=== PATIENT | female | born 1990 | race Caucasian/White ===

== ENCOUNTER 2017-10-26 10:30 | Emergency (ER) | payer BC ==
--- NOTE | 2017-10-26 11:22 | EDM.PDOC ---
ED HPI GENERAL MEDICAL PROBLEM - General Chief Complaint: Cardiovascular Problem Stated Complaint: RACING HEART Time Seen by Provider: 10/26/17 11:05 Source of Information: Reports: Patient History Limitations: Reports: No Limitations - History of Present Illness INITIAL COMMENTS - FREE TEXT/NARRATIVE: HISTORY AND PHYSICAL: History of present illness: [Comes to the emergency room complaining of her heart racing. Is completely resolved prior to arrival in the ER. She states the sensation of a fast heart rate started around 9:15 this morning after receiving allergy injections at her PCPs office. Lasted about 15 minutes and went away without any incident. When the sensation is occurring she's felt some numbness and tingling in her fingers bilaterally and around her mouth. When she feels her heart racing she feels what she describes as "a veil covering my eyes". She had an episode of this yesterday which lasted approximately 2 hours. She's had 2 other episodes in the past which occurred in the fall of 2016. She denies any shortness of breath or pain in her chest when this occurs. She has not checked her pulse rate when she gets the sensation of her heart racing. She does not have headache dizziness or blurred vision with her symptoms. It does not cause difficulty breathing. No fever or chills. No recent illness or infection. Denies sore throat runny nose and earaches. No cough or shortness of breath or pain in her chest. No difficulty breathing. No abdominal pain or change in appetite. No nausea vomiting constipation or diarrhea. Has noticed no swelling to her feet or lower legs. Mood has been normal. She has not taken any medications for her symptoms. Denies history of drug use. Admits to drinking 3 Red Bull per day, as well as taking pre-workout supplements without working out. 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 Past medical history: As per history of present illness and as reviewed below otherwise noncontributory. Surgical history: As per history of present illness and as reviewed below otherwise noncontributory. Social history: No reported history of drug or alcohol abuse. Family history: As per history of present illness and as reviewed below otherwise noncontributory. Physical exam: HEENT: Atraumatic, normocephalic. Oral mucous membranes are pink and moist. Neck supple, no lymphadenopathy or JVD. Lungs: Clear to auscultation, breath sounds equal bilaterally. Heart: S1S2, regular rate and rhythm. Rate 78. No murmurs. Abdomen: Bowel sounds are normoactive throughout. Soft, nondistended, nontender. Negative for masses, guarding or rebound. Negative for costovertebral tenderness. Pelvis: Stable nontender. Genitourinary: Deferred. Rectal: Deferred. Extremities: Atraumatic, negative for cords or calf pain. No swelling or cyanosis to feet or lower legs. Neurovascular unremarkable. Neuro: Awake, alert, oriented. Cranial nerves II through XII unremarkable. Cerebellum unremarkable. Motor and sensory unremarkable throughout. Exam nonfocal. Psych: Normal affect, interacts with examiner appropriately. Diagnostics: [CBC, CMP, UA, troponin, PT/INR, urine preg, EKG] Impression: [Palpitations] Plan: [EKG shows normal sinus rhythm. Lab results are within normal limits. Urine is negative. Reviewed with patient these findings. Discussed decreasing caffeine intake and increasing water intake. Follow-up with primary care. Strict return precautions are reviewed. She verbalizes understanding of today's discussion.] Definitive disposition and diagnosis as appropriate pending reevaluation and review of above. - Related Data Allergies Allergy/AdvReac Type Severity Reaction Status Date / Time cefixime [From Suprax] Allergy Rash Verified 10/26/17 10:39 clindamycin Allergy Hives Verified 10/26/17 10:39 Oatmeal Allergy Hives Uncoded 10/26/17 10:39 Home Meds: Home Meds Albuterol Sulfate [Albuterol Sulfate HFA] 8.5 gm IH ASDIRECTED PRN 04/04/15 [ History] Montelukast Sodium [Singulair] 10 mg PO DAILY 04/04/15 [History] PARoxetine [Paxil] 15 mg PO DAILY 04/04/15 [History] lamoTRIgine 25 mg PO DAILY 04/04/15 [History] Fluticasone Furoate [Arnuity Ellipta] 100 mcg IH DAILY 10/26/17 [History] Norethindrone AC-Eth Estradiol [Junel 1 mg-20 Mcg Tablet] 1 tab DAILY 10/26/17 [ History] Past Medical History Respiratory History: Reports: Asthma 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 Social & Family History - Family History Family Medical History: Noncontributory - Tobacco Use Smoking Status *Q: Current Every Day Smoker Years of Tobacco use: 15 Packs/Tins Daily: 1 - Caffeine Use Caffeine Use: Reports: Coffee, Energy Drinks - Recreational Drug Use Recreational Drug Use: No ED ROS GENERAL - Review of Systems Review Of Systems: ROS reveals no pertinent complaints other than HPI. ED EXAM, GENERAL - Physical Exam Exam: See Below Course - Vital Signs Last Recorded V/S: Last Vital Signs Temp 98.0 F 10/26/17 10:37 Pulse 68 10/26/17 13:00 Resp 16 10/26/17 13:00 BP 122/53 L 10/26/17 13:00 Pulse Ox 96 10/26/17 13:00 - Orders/Labs/Meds Orders: Active Orders 24 hr Category Date Time Status EKG 12 Lead [EKG Documentation Completion] [RC] STAT Care 10/26/17 10:47 Active HCG QUALITATIVE,URINE [URCHEM] Stat Lab 10/26/17 11:15 Ordered UA W/MICROSCOPIC [URIN] Stat Lab 10/26/17 11:15 Ordered Labs: Laboratory Tests 10/26/17 10/26/17 10/26/17 Range/Units 11:15 11:15 11:33 WBC 8.19 (4.0-11.0) K/uL RBC 4.78 (4.30-5.90) M/uL Hgb 14.5 (12.0-16.0) g/dL Hct 42.3 (36.0-46.0) % MCV 88.5 (80.0-98.0) fL MCH 30.3 (27.0-32.0) pg MCHC 34.3 (31.0-37.0) g/dL RDW Std Deviation 42.8 (28.0-62.0) fl RDW Coeff of Ines 13 (11.0-15.0) % Plt Count 295 (150-400) K/uL MPV 9.40 (7.40-12.00) fL Neut % (Auto) 60.8 (48.0-80.0) % Lymph % (Auto) 24.2 (16.0-40.0) % [place] % (Auto) 7.9 (0.0-15.0) % Eos % (Auto) 6.2 (0.0-7.0) % Baso % (Auto) 0.9 (0.0-1.5) % Neut # (Auto) 5.0 (1.4-5.7) K/uL Lymph # (Auto) 2.0 (0.6-2.4) K/uL [place] # (Auto) 0.7 (0.0-0.8) K/uL Eos # (Auto) 0.5 (0.0-0.7) K/uL Baso # (Auto) 0.1 (0.0-0.1) K/uL Nucleated RBC % 0.0 /100WBC Nucleated RBCs # 0 K/uL INR Sodium (136-145) mmol/L Potassium (3.5-5.1) mmol/L Chloride (98-107) mmol/L Carbon Dioxide (21.0-32.0) mmol/L BUN (7.0-18.0) mg/dL Creatinine (0.6-1.0) mg/dL Est Cr Clr Drug Dosing mL/min Estimated GFR (MDRD) ml/min Glucose (74-106) mg/dL Calcium (8.5-10.1) mg/dL Total Bilirubin (0.2-1.0) mg/dL AST (15-37) IU/L ALT (14-63) IU/L Alkaline Phosphatase (46-116) U/L Troponin I (0.000-0.056) ng/mL Total Protein (6.4-8.2) g/dL Albumin (3.4-5.0) g/dL Globulin (2.0-3.5) g/dL Albumin/Globulin Ratio (1.3-2.8) Urine Color YELLOW Urine Appearance CLEAR Urine pH 6.0 (5.0-8.0) Ur Specific Labolt 1.025 (1.001-1.035) Urine Protein NEGATIVE (NEGATIVE) mg/dL Urine Glucose (UA) NEGATIVE (NEGATIVE) mg/dL Urine Ketones NEGATIVE (NEGATIVE) mg/dL Urine Occult Blood TRACE-INTACT (NEGATIVE) Urine Nitrite NEGATIVE (NEGATIVE) Urine Bilirubin NEGATIVE (NEGATIVE) Urine Urobilinogen 0.2 (<2.0) EU/dL Ur Leukocyte Esterase NEGATIVE (NEGATIVE) Urine RBC 0-1 (0-2/HPF) Urine WBC 1-2 (0-5/HPF) Ur Epithelial Cells MODERATE (NONE-FEW) Urine Bacteria RARE (NEGATIVE) Urine HCG, Qual NEGATIVE (NEGATIVE) 10/26/17 10/26/17 Range/Units 11:33 11:33 WBC (4.0-11.0) K/uL RBC (4.30-5.90) M/uL Hgb (12.0-16.0) g/dL Hct (36.0-46.0) % MCV (80.0-98.0) fL MCH (27.0-32.0) pg MCHC (31.0-37.0) g/dL RDW Std Deviation (28.0-62.0) fl RDW Coeff of Ines (11.0-15.0) % Plt Count (150-400) K/uL MPV (7.40-12.00) fL Neut % (Auto) (48.0-80.0) % Lymph % (Auto) (16.0-40.0) % [place] % (Auto) (0.0-15.0) % Eos % (Auto) (0.0-7.0) % Baso % (Auto) (0.0-1.5) % Neut # (Auto) (1.4-5.7) K/uL Lymph # (Auto) (0.6-2.4) K/uL [place] # (Auto) (0.0-0.8) K/uL Eos # (Auto) (0.0-0.7) K/uL Baso # (Auto) (0.0-0.1) K/uL Nucleated RBC % /100WBC Nucleated RBCs # K/uL INR 1.02 Sodium 136 (136-145) mmol/L Potassium 4.1 (3.5-5.1) mmol/L Chloride 103 (98-107) mmol/L Carbon Dioxide 27.0 (21.0-32.0) mmol/L BUN 20 H (7.0-18.0) mg/dL Creatinine 0.8 (0.6-1.0) mg/dL Est Cr Clr Drug Dosing 101.81 mL/min Estimated GFR (MDRD) > 60.0 ml/min Glucose 86 (74-106) mg/dL Calcium 9.3 (8.5-10.1) mg/dL Total Bilirubin 0.3 (0.2-1.0) mg/dL AST 16 (15-37) IU/L ALT 21 (14-63) IU/L Alkaline Phosphatase 56 (46-116) U/L Troponin I < 0.050 (0.000-0.056) ng/mL Total Protein 7.5 (6.4-8.2) g/dL Albumin 3.9 (3.4-5.0) g/dL Globulin 3.6 H (2.0-3.5) g/dL Albumin/Globulin Ratio 1.1 L (1.3-2.8) Urine Color Urine Appearance Urine pH (5.0-8.0) Ur Specific Labolt (1.001-1.035) Urine Protein (NEGATIVE) mg/dL Urine Glucose (UA) (NEGATIVE) mg/dL Urine Ketones (NEGATIVE) mg/dL Urine Occult Blood (NEGATIVE) Urine Nitrite (NEGATIVE) Urine Bilirubin (NEGATIVE) Urine Urobilinogen (<2.0) EU/dL Ur Leukocyte Esterase (NEGATIVE) Urine RBC (0-2/HPF) Urine WBC (0-5/HPF) Ur Epithelial Cells (NONE-FEW) Urine Bacteria (NEGATIVE) Urine HCG, Qual (NEGATIVE) Departure - Departure Time of Disposition: 12:45 Disposition: Home, Self-Care 01 Condition: Good Clinical Impression: Palpitations Instructions: Palpitations, [id number] Referrals: Paulina Razo NP [Primary Care Provider] - Forms: ED Department Discharge Additional Instructions: The following information is given to patients seen in the emergency department who are being discharged to home. This information is to outline your options for follow-up care. We provide all patients seen in our emergency department with a follow-up referral. The need for follow-up, as well as the timing and circumstances, are variable depending upon the specifics of your emergency department visit. If you don't have a primary care physician on staff, we will provide you with a referral. We always advise you to contact your personal physician following an emergency department visit to inform them of the circumstance of the visit and for follow-up with them and/or the need for any referrals to a consulting specialist. The emergency department will also refer you to a specialist when appropriate. This referral assures that you have the opportunity for follow-up care with a specialist. All of these measure are taken in an effort to provide you with optimal care, which includes your follow-up. Under all circumstances we always encourage you to contact your private physician who remains a resource for coordinating your care. When calling for follow-up care, please make the office aware that this follow-up is from your recent emergency room visit. If for any reason you are refused follow-up, please contact the [facility] emergency department at and asked to speak to the emergency department charge nurse. [facility] [address] [place] [id number] Follow-up up with your local primary care provider or at the clinic listed above in 48-72 hours. Increase water, decrease caffeine. Return to ER as needed as discussed. - My Orders Last 24 Hours: My Active Orders 10/26/17 10:47 EKG 12 Lead [EKG Documentation Completion] [RC] STAT 10/26/17 11:15 HCG QUALITATIVE,URINE [URCHEM] Stat UA W/MICROSCOPIC [URIN] Stat - Assessment/Plan Last 24 Hours: My Active Orders 10/26/17 10:47 EKG 12 Lead [EKG Documentation Completion] [RC] STAT 10/26/17 11:15 HCG QUALITATIVE,URINE [URCHEM] Stat UA W/MICROSCOPIC [URIN] Stat
[2017-10-26 12:13] LABS: CHLORIDE,CL 103 mmol/L (98-107)
[2017-10-26 12:25] LABS: SODIUM,NA 136 mmol/L (136-145)
[2017-10-26 13:01] VITALS: BP 122/53
== END 2017-10-26 12:53 | disposition home or self-care (01) ==
LOC: MW.ED 10:30
DX: R00.2 Palpitations (principal); J45.909 Unspecified asthma, uncomplicated; F17.210 Nicotine dependence, cigarettes, uncomplicated; F41.9 Anxiety disorder, unspecified; F32.9 Major depressive disorder, single episode, unspecified; Z79.899 Other long term (current) drug therapy; Z88.1 Allergy status to other antibiotic agents; Z91.018 Allergy to other foods
CPT/HCPCS: 36415; 80053; 81001; 81025; 84484; 85025; 85610; 93005; 99283; 99285-25

== ENCOUNTER 2019-02-15 11:09 | Emergency (ER) | payer BC, OTHER ==
[2019-02-15 11:27] VITALS: BP 127/70
--- NOTE | 2019-02-15 11:32 | EDM.PDOC ---
ED HPI GENERAL MEDICAL PROBLEM - General Chief Complaint: Eye Problems Stated Complaint: EYES RED/SWOLLEN, HANDS- RASH Time Seen by Provider: 02/15/19 11:29 Source of Information: Reports: Patient History Limitations: Reports: No Limitations - History of Present Illness INITIAL COMMENTS - FREE TEXT/NARRATIVE: HISTORY AND PHYSICAL: History of present illness: Patient is a 29-year-old female who presents to the emergency room with complaints of bilateral sinus discomfort and eye drainage and irritation. Reports she does have significant allergies and does take Zyrtec and Singulair daily to help control her symptoms. Yesterday she was doing gardening and mowed the lawn, symptoms started shortly thereafter. Review of systems: As per history of present illness and below otherwise all systems reviewed and negative. Past medical history: As per history of present illness and as reviewed below otherwise noncontributory. Surgical history: As per history of present illness and as reviewed below otherwise noncontributory. Social history: See social history for further information Family history: As per history of present illness and as reviewed below otherwise noncontributory. Physical exam: General: Well-developed and well-nourished 29-year-old female. Alert and oriented. Nontoxic appearing and in no acute distress. HEENT: Atraumatic, normocephalic, pupils equal and reactive bilaterally, negative for conjunctival pallor or scleral icterus, mucous membranes moist, TMs normal bilaterally, throat clear, neck supple, nontender, trachea midline. Bilateral maxillary sinus tenderness with palpation. No drooling or trismus noted. No meningeal signs. No hot potato voice noted. Lungs: Clear to auscultation, breath sounds equal bilaterally, chest nontender. Heart: S1S2, regular rate and rhythm without overt murmur Abdomen: Soft, nondistended, nontender. Skin: Does have noted eczema to bilateral wrists and the nape of her neck ( chronic), does not appear inflammed or infected. Redness and soft tissue swelling noted to bilateral cheeks with dry skin. Otherwise skin is intact, warm , dry. No lesions or rashes noted. Extremities: Atraumatic, moves all extremities per self without difficulty or deficits, negative for cords or calf pain. Neurovascular unremarkable. Neuro: Awake, alert, oriented. Cranial nerves II through XII unremarkable. Cerebellum unremarkable. Motor and sensory unremarkable throughout. Exam nonfocal. Notes: We discussed treatment modalities. We'll treat her for sinusitis. I drainage and irritation is likely allergic in nature. Encouraged her to follow up with her primary care provider for reevaluation and further management. Supportive care measures were reviewed and discussed. Voices understanding and is agreeable to plan of care. Denies any further questions or concerns at this time. Diagnostics: None Therapeutics: None Prescription: Augmentin Medrol Dosepak Impression: Allergic conjunctivitis Sinusitis Plan: 1. Continue taking here see her tach and Singulair as you have been. Use Benadryl as needed. Take prescriptions as directed. 2. Follow-up with your primary care provider as we discussed. Return to the ED as needed and as discussed. Definitive disposition and diagnosis as appropriate pending reevaluation and review of above. - Related Data Allergies Allergy/AdvReac Type Severity Reaction Status Date / Time cefixime [From Suprax] Allergy Rash Verified 02/15/19 11:24 clindamycin Allergy Hives Verified 02/15/19 11:24 Oatmeal Allergy Hives Uncoded 02/15/19 11:24 Home Meds: Home Meds Albuterol Sulfate [Albuterol Sulfate HFA] 1 - 2 puff IH ASDIRECTED PRN 04/04/15 [History] Montelukast Sodium [Singulair] 10 mg PO DAILY 04/04/15 [History] PARoxetine [Paxil] 20 mg PO BID 04/04/15 [History] lamoTRIgine 100 mg PO DAILY 04/04/15 [History] Fluticasone Furoate [Arnuity Ellipta] 1 dose IH DAILY 10/26/17 [History] Norethindrone AC-Eth Estradiol [Junel 1 mg-20 Mcg Tablet] 1 tab DAILY 10/26/17 [ History] Past Medical History Respiratory History: Reports: Asthma 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 Social & Family History - Family History Family Medical History: Noncontributory - Tobacco Use Smoking Status *Q: Light Tobacco Smoker Years of Tobacco use: 10 Packs/Tins Daily: 0.1 - Caffeine Use Caffeine Use: Reports: Coffee, Energy Drinks - Recreational Drug Use Recreational Drug Use: No ED ROS GENERAL - Review of Systems Review Of Systems: ROS reveals no pertinent complaints other than HPI. ED EXAM GENERAL W FULL EYE - Physical Exam Exam: See Below (See dictation) Course - Vital Signs Last Recorded V/S: Last Vital Signs Temp 96.9 F 02/15/19 11:24 Pulse 81 02/15/19 11:24 Resp 15 02/15/19 11:24 BP 127/70 02/15/19 11:24 Pulse Ox 99 02/15/19 11:24 Departure - Departure Time of Disposition: 11:31 Disposition: Home, Self-Care 01 Clinical Impression: Conjunctivitis Qualifiers: Conjunctivitis type: other Laterality: bilateral Qualified Code(s): H10.89 - Other conjunctivitis Sinusitis Qualifiers: Sinusitis location: frontal Chronicity: acute Recurrence: non-recurrent Qualified Code(s): J01.10 - Acute frontal sinusitis, unspecified - Discharge Information Instructions: Allergic Conjunctivitis, Adult, [id number], Sinusitis, Adult, [id number] Referrals: Paulina Razo NP [Primary Care Provider] - Forms: ED Department Discharge Additional Instructions: The following information is given to patients seen in the emergency department who are being discharged to home. This information is to outline your options for follow-up care. We provide all patients seen in our emergency department with a follow-up referral. The need for follow-up, as well as the timing and circumstances, are variable depending upon the specifics of your emergency department visit. If you don't have a primary care physician on staff, we will provide you with a referral. We always advise you to contact your personal physician following an emergency department visit to inform them of the circumstance of the visit and for follow-up with them and/or the need for any referrals to a consulting specialist. The emergency department will also refer you to a specialist when appropriate. This referral assures that you have the opportunity for follow-up care with a specialist. All of these measure are taken in an effort to provide you with optimal care, which includes your follow-up. Under all circumstances we always encourage you to contact your private physician who remains a resource for coordinating your care. When calling for follow-up care, please make the office aware that this follow-up is from your recent emergency room visit. If for any reason you are refused follow-up, please contact the [facility] Emergency Department at and asked to speak to the emergency department charge nurse. [facility] [address] [place] [id number] [facility] [address] [place] [id number] 1. Continue taking your Zytrec and Singulair as you have been. Use Benadryl as needed. Take prescriptions as directed. 2. Follow-up with your primary care provider as we discussed. Return to the ED as needed and as discussed.
== END 2019-02-15 11:40 | disposition home or self-care (01) ==
LOC: MW.ED 11:09
DX: H10.13 Acute atopic conjunctivitis, bilateral (principal); J01.10 Acute frontal sinusitis, unspecified; J45.909 Unspecified asthma, uncomplicated; F41.9 Anxiety disorder, unspecified; F32.9 Major depressive disorder, single episode, unspecified; F17.210 Nicotine dependence, cigarettes, uncomplicated; Z88.1 Allergy status to other antibiotic agents; Z91.018 Allergy to other foods; Z79.899 Other long term (current) drug therapy
CPT/HCPCS: 99282

== ENCOUNTER 2020-06-15 16:30 | Emergency (ER) | payer BC ==
[2020-06-15 17:25] LABS: BLOOD UREA NITROGEN,BUN 14 mg/dL (7.0-18.0); CARBON DIOXIDE,CO2 24.4 mmol/L (21.0-32.0); CHLORIDE,CL 104 mmol/L (98-107); GLUCOSE RANDOM 91 mg/dL (74-106); POTASSIUM,K 3.7 mmol/L (3.5-5.1); SODIUM,NA 138 mmol/L (136-145)
--- NOTE | 2020-06-15 17:48 | CR ---
INDICATION: Chest pain after EGD. Evaluate for free air COMPARISON: None available. FINDINGS: PA and lateral views of the chest were obtained. The lungs are clear. No focal or diffuse infiltrates are present. The heart is normal in size. The mediastinum is normal in appearance. There is no sign of any pneumomediastinum. There is no sign of any free air in the abdomen. The osseous structures are normal in appearance for the patient`s age. IMPRESSION: Normal chest 2 views. No sign of any pneumomediastinum or free intra-abdominal air. Dictated by Terrence Jacques MD @ Jun 15 2020 5:38PM Signed by Dr. Terrence Jacques @ Jun 15 2020 5:45PM
--- NOTE | 2020-06-15 17:58 | EDM.PDOC ---
ED HPI GENERAL MEDICAL PROBLEM - General Chief Complaint: Chest Pain Stated Complaint: CHEST PAINS Time Seen by Provider: 06/15/20 16:40 - History of Present Illness INITIAL COMMENTS - FREE TEXT/NARRATIVE: CHIEF COMPLAINT(S): Chest pain HISTORY OF PRESENT ILLNESS: This is a 30-year-old woman with a recent diagnosis of ulcerative colitis yesterday status post EGD and colonoscopy who comes to the emergency department with a chief complaint of chest pain. The patient states that approximately 3 to 4 hours prior to arrival she started to experience chest pain located in the center of her chest and just to the left. She describes the pain as sharp without any radiation. She states that the pain is constant and rated currently at 1 out of 10. She states that at its maximal onset it was 2 out of 10. She denies any associated symptoms such as shortness of breath, vomiting, nausea, hematemesis, or diaphoresis. She states that it has slowly improved on its own but there are no relieving symptoms. She states that she has not had any fevers or anything but states that she was told by the GI doctor yesterday to come to the emergency department if she developed chest pain. She denies any other symptoms REVIEW OF SYSTEMS: Constitutional: Denies fever, chills. Eyes: Denies eye pain Ears, Nose, Mouth, & Throat: Denies earache Cardiovascular: Positive for chest pain Respiratory: Denies shortness of breath Gastrointestinal: Denies abdominal pain, nausea, vomiting, diarrhea, hematochezia. Genitourinary: Denies hematuria Skin:Denies a rash Neurological: Denies blurred vision Psychiatric: Denies depression PAST MEDICAL HISTORY: As per history of present illness and as reviewed below otherwise noncontributory. SURGICAL HISTORY: As per history of present illness and as reviewed below otherwise noncontributory. SOCIAL HISTORY: As per history of present illness and as reviewed below otherwise noncontributory. FAMILY HISTORY: As per history of present illness and as reviewed below otherwise noncontributory. EXAMINATION OF ORGAN SYSTEMS/BODY AREAS: Constitutional: Blood pressure is 128/60, heart rate 86, respiratory rate 18 with an oxygen saturation 98% on room air. Temperature 36 point General: Overall well-appearing woman who is in no acute distress Psychiatric: Appropriate mood and affect. Eyes: No scleral icterus or conjunctival erythema ENMT: Moist mucous membranes. No pharyngeal erythema Cardiovascular: Regular, rate, and rythym. No gallops, murmurs, or rubs. Bilateral upper extremity pulses symmetric and intact. No peripheral edema. No JVD. No crepitus felt in the neck or anterior chest wall. Respiratory: Lungs clear to auscultation bilaterally. No wheezes, rales, or rhonchi. Gastrointestinal: Soft, non-tender, non-distended. Normoactive bowel sounds Genitourinary: No suprapubic tenderness Musculoskeletal: Normal range of motion. Skin: No lesions or abrasions. Neurological: Alert, GCS 15 MEDICAL DECISION MAKING AND COURSE IN THE ED WITH INTERPRETATION/REVIEW OF DIAGNOSTIC STUDIES: This is a 30-year-old woman with a past medical history of ulcerative colitis, asthma, depression, anxiety who comes to the emergency department with central chest pain after having an EGD done yesterday who has stable vital signs and appears well. EKG was obtained which did not reveal any acute signs of ischemia. Will get labs including CBC, BMP, troponin, and magnesium. Will obtain a chest x-ray to evaluate for mediastinal air. At this time the patient did not want any pain medication as it is improving. We will reevaluate the patient for symptomatic improvement. Laboratory: CBC reveals a leukocytosis of 13.30 with neutrophilic predominance and thrombocytosis with a plate count of 403. BMP is unremarkable. Troponin x1 is negative. Magnesium is decreased at 1.7. The radiological images were viewed by myself along with reading the report from the radiologist. Chest x-ray does not reveal any acute cardiopulmonary process or evidence of mediastinal air. Twelve-lead EKG interpreted by myself. Normal sinus rhythm at a rate of 90beats per minute. Normal axis. MD interval is 115ms. QRS duration is 84ms. ST segments are normal without elevations or depressions. No Q waves present. Hypertrophy not noted. No changes demonstrated from prior EKG dated November 05, 2017. Interpretation: Normal sinus rhythm On reevaluation, the patient stated that she had the pain still. She still rates it as 1 out of 10. I discussed with her at this time obtaining a CT to evaluate for air. She was amenable to this plan. Therefore we will obtain a CT thorax without contrast. The radiological images were viewed by myself along with reading the report from the radiologist. CT thorax does not reveal any pneumomediastinum or abnormality. After imaging the patient stated that her pain continued to improve. At this time I do not believe any further imaging is indicated. I did discuss with her at this time that if she were to have worsening chest pain she need to return to the emergency department for further imaging including a contrast esophagram. She did express understanding. She was amenable discharge at this time and had no further questions. DISPOSITION: The patient was discharged home in stable condition. The patient will follow up with GI specialist at her scheduled appointment CONDITION: Fair PROCEDURES: None FINAL IMPRESSION(S)/DIAGNOSES: One. Acute atypical chest pain Durga Trujillo M.D. chest Pain Score (Numeric/FACES): 2 - Related Data Allergies Allergy/AdvReac Type Severity Reaction Status Date / Time cefixime [From Suprax] Allergy Rash Verified 06/15/20 16:53 clindamycin Allergy Hives Verified 06/15/20 16:53 Oatmeal Allergy Hives Uncoded 06/15/20 16:53 Home Meds: Home Meds Albuterol Sulfate [Albuterol Sulfate HFA] 1 - 2 puff IH ASDIRECTED PRN 04/04/15 [History] Montelukast Sodium [Singulair] 10 mg PO DAILY 04/04/15 [History] PARoxetine [Paxil] 20 mg PO BID 04/04/15 [History] lamoTRIgine 100 mg PO DAILY 04/04/15 [History] Fluticasone Furoate [Arnuity Ellipta] 1 dose IH DAILY 10/26/17 [History] norethindrone ac-eth estradioL [Junel 1 mg-20 Mcg Tablet] 1 tab DAILY 10/26/17 [History] Dupilumab [Dupixent Syringe] mg IM ASDIRECTED 06/15/20 [History] LORazepam [Ativan] mg PO ASDIRECTED PRN 06/15/20 [History] Past Medical History Respiratory History: Reports: Asthma 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 Social & Family History - Family History Family Medical History: No Pertinent Family History - Tobacco Use Tobacco Use Status *Q: Never Tobacco User - Caffeine Use Caffeine Use: Reports: Coffee, Energy Drinks - Recreational Drug Use Recreational Drug Use: No ED ROS GENERAL - Review of Systems Review Of Systems: See Below ED EXAM, GENERAL - Physical Exam Exam: See Below Course - Vital Signs Last Recorded V/S: Last Vital Signs Temp 36.6 C 06/15/20 16:45 Pulse 72 06/15/20 18:47 Resp 18 06/15/20 18:47 BP 114/69 06/15/20 18:47 Pulse Ox 97 06/15/20 18:47 - Orders/Labs/Meds Labs: Laboratory Tests 06/15/20 06/15/20 Range/Units 16:45 16:45 WBC 13.30 H (4.0-11.0) K/uL RBC 4.05 L (4.30-5.90) M/uL Hgb 11.9 L (12.0-16.0) g/dL Hct 36.2 (36.0-46.0) % MCV 89.4 (80.0-98.0) fL MCH 29.4 (27.0-32.0) pg MCHC 32.9 (31.0-37.0) g/dL RDW Std Deviation 41.0 (28.0-62.0) fl RDW Coeff of Ines 13 (11.0-15.0) % Plt Count 403 H (150-400) K/uL MPV 9.80 (7.40-12.00) fL Neut % (Auto) 70.3 (48.0-80.0) % Lymph % (Auto) 20.8 (16.0-40.0) % [place] % (Auto) 4.3 (0.0-15.0) % Eos % (Auto) 4.3 (0.0-7.0) % Baso % (Auto) 0.3 (0.0-1.5) % Neut # (Auto) 9.4 H (1.4-5.7) K/uL Lymph # (Auto) 2.8 H (0.6-2.4) K/uL [place] # (Auto) 0.6 (0.0-0.8) K/uL Eos # (Auto) 0.6 (0.0-0.7) K/uL Baso # (Auto) 0.0 (0.0-0.1) K/uL Nucleated RBC % 0.0 /100WBC Nucleated RBCs # 0 K/uL Sodium 138 (136-145) mmol/L Potassium 3.7 (3.5-5.1) mmol/L Chloride 104 (98-107) mmol/L Carbon Dioxide 24.4 (21.0-32.0) mmol/L BUN 14 (7.0-18.0) mg/dL Creatinine 0.8 (0.6-1.0) mg/dL Est Cr Clr Drug Dosing 99.08 mL/min Estimated GFR (MDRD) > 60.0 ml/min Glucose 91 (74-106) mg/dL Calcium 8.6 (8.5-10.1) mg/dL Magnesium 1.7 L (1.8-2.4) mg/dL Troponin I < 0.050 (0.000-0.056) ng/mL Departure - Departure Time of Disposition: 18:59 Disposition: Home, Self-Care 01 Condition: Fair Clinical Impression: Atypical chest pain - Discharge Information *PRESCRIPTION DRUG MONITORING PROGRAM REVIEWED*: No *COPY OF PRESCRIPTION DRUG MONITORING REPORT IN PATIENT DEJA: No Instructions: Nonspecific Chest Pain, Adult, [id number] Referrals: Elaine Cardoza DO [Primary Care Provider] - Forms: ED Department Discharge Additional Instructions: The patient is informed of any results of their evaluation and diagnostic workup and all questions are answered. They are given discharge instructions and return precautions. The patient is stable for discharge. The patient states they understand and agree with the plan and that they will return if their symptoms get worse or if they have any new concerns. The following information is given to patients seen in the emergency department who are being discharged to home. This information is to outline your options for follow-up care. We provide all patients seen in our emergency department with a follow-up referral. The need for follow-up, as well as the timing and circumstances, are variable depending upon the specifics of your emergency department visit. If you don't have a primary care physician on staff, we will provide you with a referral. We always advise you to contact your personal physician following an emergency department visit to inform them of the circumstance of the visit and for follow-up with them and/or the need for any referrals to a consulting specialist. The emergency department will also refer you to a specialist when appropriate. This referral assures that you have the opportunity for follow-up care with a specialist. All of these measure are taken in an effort to provide you with optimal care, which includes your follow-up. Under all circumstances we always encourage you to contact your private physician who remains a resource for coordinating your care. When calling for follow-up care, please make the office aware that this follow-up is from your recent emergency room visit. If for any reason you are refused follow-up, please contact the [facility] Emergency Department at and asked to speak to the emergency department charge nurse. Today your evaluated in an emergency basis. It is reassuring that your chest pain is improving. At this time her work-up is negative. If you are to have worsening chest pain I would return to the emergency department for further imaging. Please follow-up with your GI specialist at your scheduled appointment. [facility] [address] [place] [id number] [place] [address] Sepsis Event Note (ED) - Evaluation Sepsis Screening Result: No Definite Risk - Focused Exam Vital Signs: Vital Signs Temp Pulse Resp BP Pulse Ox 06/15/20 18:47 72 18 114/69 97 06/15/20 17:59 71 18 128/60 96 06/15/20 16:45 36.6 C 86 18 128/60 98
[2020-06-15 18:48] VITALS: BP 114/69; PULSE 72
--- NOTE | 2020-06-15 18:53 | CT ---
INDICATION: Chest pain following endoscopy TECHNIQUE: CT chest without i.v. contrast. Coronal and sagittal reformats were obtained. COMPARISON: None FINDINGS: Cardiovascular: The heart has an unremarkable appearance and size. The pulmonary arteries are unremarkable in appearance. No sign of aneurysm seen in the thoracic aorta. The presence of aortic dissection cannot be evaluated without the use of intravenous contrast. Mediastinum: No pneumomediastinum is identified. Trace residual thymic tissue is noted in the anterior mediastinum. Lung: Both lungs are unremarkable in appearance. Pleura and pericardium: No sign of pleural effusion seen. No significant pericardial effusion is present. Chest wall and axilla: No mass or adenopathy seen. Bone: Unremarkable for age. Upper abdomen: Unremarkable. IMPRESSION: 1. Unremarkable CT appearance of the chest. If there is a high clinical index of suspicion for soft tissue injury, assessment with contrast esophagram is recommended. Dictated by Arnulfo Rodriguez MD @ 06/15/2020 6:50:46 PM Please note that all CT scans at this facility use dose modulation, iterative reconstruction, and/or weight-based dosing when appropriate to reduce radiation dose to as low as reasonably achievable. Dictated by: Arnulfo Rodriguez MD @ 06/15/2020 18:51:31 (Electronically Signed)
== END 2020-06-15 19:09 | disposition home or self-care (01) ==
LOC: MW.ED 16:30
DX: R07.89 Other chest pain (principal); J45.909 Unspecified asthma, uncomplicated; F41.9 Anxiety disorder, unspecified; F32.9 Major depressive disorder, single episode, unspecified; Z79.899 Other long term (current) drug therapy; Z88.1 Allergy status to other antibiotic agents; Z91.018 Allergy to other foods
CPT/HCPCS: 36415; 71046; 71046-26; 71250; 71250-26; 80048; 83735; 83880; 84484; 85025; 93005; 93010; 99282; 99285-25

== ENCOUNTER 2020-12-24 01:21 | Emergency (ER) | payer BC ==
[2020-12-24] MEDS ORDERED: Lidocaine 1% 10 ML MDV INJECT ONE (01:24)
[2020-12-24] MEDS ORDERED: Sodium Chloride 0.9% 2.5 ML Syringe FLUSH PRN (01:24)
[2020-12-24] MEDS ORDERED: Sodium Chloride 0.9% 10 ML Syringe FLUSH PRN (01:24)
--- NOTE | 2020-12-24 01:42 | EDM.PDOC ---
ED HPI GENERAL MEDICAL PROBLEM - General Chief Complaint: Behavioral/Psych Stated Complaint: CUT ON RIGHT WRIST Time Seen by Provider: 12/24/20 01:27 - History of Present Illness INITIAL COMMENTS - FREE TEXT/NARRATIVE: History of present illness: [] This patient presents with a laceration of the right wrist. She is tearful crying and says she is ashamed and upset. She is afraid to . She says she cut her own wrist and cut her own left arm. She did this in response to being overwhelmed with depression and anxiety which is built over the last 3 weeks. The patient had a couple of drinks with a friend and then after starting to drink she drank some more and lost her intubation to hurt her self. She has not tried to hurt her self since she took an overdose of pills when she was 13 years old. The patient is chronically dealt with depression and anxiety but 3 weeks ago she lost a relationship but also was a source of financial security and now her job is quite stressful and she cannot afford to do the things she likes to and is used to doing. Review of systems: As per history of present illness and below otherwise all systems reviewed and negative. Past medical history: As per history of present illness and as reviewed below otherwise noncontributory. Surgical history: As per history of present illness and as reviewed below otherwise noncontributory. Social history: No reported history of drug or alcohol abuse. Family history: As per history of present illness and as reviewed below otherwise noncontributory. Physical exam: Constitutional - well developed, well-nourished and in no acute distress HEENT - normocephalic, no evidence of trauma - external nose and mouth normal - no mass in neck and no JVD - mucosae moist EYES - full EOM, PERRL, no icterus - no evidence of inflammation, injection, or drainage Respiratory - no respiratory distress, equal bilateral expansion, lungs clear to auscultation and no abnormal lung sounds Cardiovascular - Regular Rhythm with S1 and S2 appreciated and no murmur, gallop or rub. John's test reveals she has good revascularization after compression of the right hand from both the ulnar and radial artery. GI - abdomen soft without distension or organomegaly - normal bowel sounds - no guard or rebound Musculoskeletal no gross deformity of long bones or joints - no tenderness, swelling or edema Neurologic - Alert and oriented times four - CN II-XII grossly intact - motor sensory and coordination symmetrically normal -median ulnar and radial sensory motor exam intact in the right upper extremity Psychiatric - appropriate mood and affect with normal thought content Hematologic - No petechiae or purpura - mucosa appropriate color and sclera not pale - normal nail bed color and refill Integument -3 cm laceration to the right wrist on the volar surface from the ulnar edge to the midline with violation of the dermal tissues but no violation of tendon sheath and no arterial bleed. 6 cm laceration to the left upper lateral arm is extremely superficial. No rash or evidence of trauma - normal turgor Diagnostics: [] Therapeutics: [] Impression: [] Plan: [] Definitive disposition and diagnosis as appropriate pending reevaluation and review of above. Right Wrist Pain Score (Numeric/FACES): 2 - Related Data Allergies Allergy/AdvReac Type Severity Reaction Status Date / Time cefixime [From Suprax] Allergy Rash Verified 12/24/20 01:50 clindamycin Allergy Hives Verified 12/24/20 01:50 Oatmeal Allergy Hives Uncoded 12/24/20 01:50 Home Meds: Home Meds Albuterol Sulfate [Albuterol Sulfate HFA] 1 - 2 puff IH ASDIRECTED PRN 04/04/15 [History] Montelukast Sodium [Singulair] 10 mg PO DAILY 04/04/15 [History] PARoxetine [Paxil] 20 mg PO BID 04/04/15 [History] lamoTRIgine 100 mg PO DAILY 04/04/15 [History] Fluticasone Furoate [Arnuity Ellipta] 1 dose IH DAILY 10/26/17 [History] norethindrone ac-eth estradioL [Junel 1 mg-20 Mcg Tablet] 1 tab PO DAILY 10/26/17 [History] Dupilumab [Dupixent Syringe] 200 mg IM ASDIRECTED 06/15/20 [History] LORazepam [Ativan] 0.5 mg PO ASDIRECTED PRN 06/15/20 [History] Past Medical History Respiratory History: Reports: Asthma 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 Social & Family History - Family History Family Medical History: No Pertinent Family History - Caffeine Use Caffeine Use: Reports: Coffee, Energy Drinks ED ROS GENERAL - Review of Systems Review Of Systems: Comprehensive ROS is negative, except as noted in HPI. ED EXAM, GENERAL - Physical Exam Exam: See Below Free Text/Narrative:: My physical exam is in the HPI ED GENERAL MEDICAL PROCEDURES - Laceration/Wound Repair Right Wrist Lac/wound length in cm: 3 Appearance: Linear Distal NVT: Neuro & Vascular Intact Anesthetic Type: Local Local Anesthesia - Lidocaine (Xylocaine): 1% Plain Local Anesthetic Volume: 5cc Skin Prep: Chlorhexidine (Hibiciens), Saline Saline irrigation (cc's): 500 Exploration/Debridement/Repair: Wound Explored, In a Bloodless Field Closed with: Sutures Suture Size: 5-0 # of Sutures: 5 Suture Type: Nylon Progress/Comments: Wound on the left arm was more superficial and we cleansed it and then applied Dermabond. #1 Interpretation EKG Interpretation Comments: EKG done at 1:35 AM sinus tachycardia with a heart rate of 107 and WI interval 121 and QT duration 450. The axis is 70. QRS is normal except for late transition to R wave in the precordium and ST and T are normal. Impression no acute injury or or arrhythmia Course - Vital Signs Text/Narrative:: 2:24 AM patient has a psychiatrist that she feels she should have called after her break-up. She plans to follow-up. She also has a cousin that will check in on her today. She has no intent to hurt her self. 6:32 AM patient has rested comfortably in ER. She is sober now. She says she has support and she can handle the situation. She has no intention to harm herself. She will call her psychiatrist today. She agrees to follow-up with [facility] today if her psychiatrist unavailable. Last Recorded V/S: Last Vital Signs Temp 36.6 C 12/24/20 01:36 Pulse 96 12/24/20 06:24 Resp 17 12/24/20 06:24 BP 100/60 12/24/20 06:24 Pulse Ox 96 12/24/20 06:24 - Orders/Labs/Meds Orders: Active Orders 24 hr Category Date Time Status EKG Documentation Completion [RC] AM Care 12/24/20 01:24 Active Sodium Chloride 0.9% [Saline Flush] Med 12/24/20 01:24 Active 10 ml FLUSH ASDIRECTED PRN Sodium Chloride 0.9% [Saline Flush] Med 12/24/20 01:24 Active 2.5 ml FLUSH ASDIRECTED PRN Saline Lock Insert [OM.PC] Stat Oth 12/24/20 01:24 Ordered Medication Orders Sodium Chloride (Sodium Chloride 0.9% 10 Ml Syringe) 10 ml FLUSH ASDIRECTED PRN PRN Reason: Keep Vein Open Last Admin: 12/24/20 02:05 Dose: 10 ml Documented by: MONICA Sodium Chloride (Sodium Chloride 0.9% 2.5 Ml Syringe) 2.5 ml FLUSH ASDIRECTED PRN PRN Reason: Keep Vein Open Last Admin: 12/24/20 02:06 Dose: 2.5 ml Documented by: MONICA Labs: Laboratory Tests 12/24/20 12/24/20 12/24/20 Range/Units 01:30 01:30 01:30 WBC 11.54 H (4.0-11.0) K/uL RBC 4.80 (4.30-5.90) M/uL Hgb 14.4 (12.0-16.0) g/dL Hct 42.0 (36.0-46.0) % MCV 87.5 (80.0-98.0) fL MCH 30.0 (27.0-32.0) pg MCHC 34.3 (31.0-37.0) g/dL RDW Std Deviation 42.6 (28.0-62.0) fl RDW Coeff of Ines 13 (11.0-15.0) % Plt Count 470 H (150-400) K/uL MPV 9.50 (7.40-12.00) fL Neut % (Auto) 64.1 (48.0-80.0) % Lymph % (Auto) 28.2 (16.0-40.0) % Thurston % (Auto) 4.9 (0.0-15.0) % Eos % (Auto) 2.4 (0.0-7.0) % Baso % (Auto) 0.4 (0.0-1.5) % Neut # (Auto) 7.4 H (1.4-5.7) K/uL Lymph # (Auto) 3.3 H (0.6-2.4) K/uL Thurston # (Auto) 0.6 (0.0-0.8) K/uL Eos # (Auto) 0.3 (0.0-0.7) K/uL Baso # (Auto) 0.1 (0.0-0.1) K/uL Nucleated RBC % 0.0 /100WBC Nucleated RBCs # 0 K/uL Sodium 136 (136-145) mmol/L Potassium 3.4 L (3.5-5.1) mmol/L Chloride 103 (98-107) mmol/L Carbon Dioxide 21.7 (21.0-32.0) mmol/L BUN 11 (7.0-18.0) mg/dL Creatinine 0.7 (0.6-1.0) mg/dL Est Cr Clr Drug Dosing 113.24 mL/min Estimated GFR (MDRD) > 60.0 ml/min Glucose 99 (74-106) mg/dL Calcium 8.9 (8.5-10.1) mg/dL Total Bilirubin 0.2 (0.2-1.0) mg/dL AST 23 (15-37) IU/L ALT 44 (14-63) IU/L Alkaline Phosphatase 102 (46-116) U/L Total Protein 8.1 (6.4-8.2) g/dL Albumin 3.9 (3.4-5.0) g/dL Globulin 4.2 H (2.6-4.0) g/dL Albumin/Globulin Ratio 0.9 (0.9-1.6) HCG, Qual (NEG) Salicylates 2.8 (0-20) mg/dL Urine Opiates Screen NEGATIVE (NEGATIVE) Ur Oxycodone Screen NEGATIVE (NEGATIVE) Urine Methadone Screen NEGATIVE (NEGATIVE) Acetaminophen ug/mL Ur Barbiturates Screen NEGATIVE (NEGATIVE) Ur Phencyclidine Scrn NEGATIVE (NEGATIVE) Ur Amphetamine Screen NEGATIVE (NEGATIVE) U Methamphetamines Scrn NEGATIVE (NEGATIVE) U Benzodiazepines Scrn NEGATIVE (NEGATIVE) U Cocaine Metab Screen NEGATIVE (NEGATIVE) U Marijuana (THC) Screen NEGATIVE (NEGATIVE) Ethyl Alcohol 151 mg/dL 12/24/20 12/24/20 Range/Units 01:30 01:30 WBC (4.0-11.0) K/uL RBC (4.30-5.90) M/uL Hgb (12.0-16.0) g/dL Hct (36.0-46.0) % MCV (80.0-98.0) fL MCH (27.0-32.0) pg MCHC (31.0-37.0) g/dL RDW Std Deviation (28.0-62.0) fl RDW Coeff of Ines (11.0-15.0) % Plt Count (150-400) K/uL MPV (7.40-12.00) fL Neut % (Auto) (48.0-80.0) % Lymph % (Auto) (16.0-40.0) % Thurston % (Auto) (0.0-15.0) % Eos % (Auto) (0.0-7.0) % Baso % (Auto) (0.0-1.5) % Neut # (Auto) (1.4-5.7) K/uL Lymph # (Auto) (0.6-2.4) K/uL Thurston # (Auto) (0.0-0.8) K/uL Eos # (Auto) (0.0-0.7) K/uL Baso # (Auto) (0.0-0.1) K/uL Nucleated RBC % /100WBC Nucleated RBCs # K/uL Sodium (136-145) mmol/L Potassium (3.5-5.1) mmol/L Chloride (98-107) mmol/L Carbon Dioxide (21.0-32.0) mmol/L BUN (7.0-18.0) mg/dL Creatinine (0.6-1.0) mg/dL Est Cr Clr Drug Dosing mL/min Estimated GFR (MDRD) ml/min Glucose (74-106) mg/dL Calcium (8.5-10.1) mg/dL Total Bilirubin (0.2-1.0) mg/dL AST (15-37) IU/L ALT (14-63) IU/L Alkaline Phosphatase (46-116) U/L Total Protein (6.4-8.2) g/dL Albumin (3.4-5.0) g/dL Globulin (2.6-4.0) g/dL Albumin/Globulin Ratio (0.9-1.6) HCG, Qual NEGATIVE (NEG) Salicylates (0-20) mg/dL Urine Opiates Screen (NEGATIVE) Ur Oxycodone Screen (NEGATIVE) Urine Methadone Screen (NEGATIVE) Acetaminophen <2.0 ug/mL Ur Barbiturates Screen (NEGATIVE) Ur Phencyclidine Scrn (NEGATIVE) Ur Amphetamine Screen (NEGATIVE) U Methamphetamines Scrn (NEGATIVE) U Benzodiazepines Scrn (NEGATIVE) U Cocaine Metab Screen (NEGATIVE) U Marijuana (THC) Screen (NEGATIVE) Ethyl Alcohol mg/dL Meds: Medications Generic Name Dose Route Start Last Admin Trade Name Freq PRN Reason Stop Dose Admin Sodium Chloride 10 ml 12/24/20 01:24 12/24/20 02:05 Sodium Chloride 0.9% 10 Ml Syringe FLUSH 10 ml ASDIRECTED PRN Administration Keep Vein Open Sodium Chloride 2.5 ml 12/24/20 01:24 12/24/20 02:06 Sodium Chloride 0.9% 2.5 Ml Syringe FLUSH 2.5 ml ASDIRECTED PRN Administration Keep Vein Open Discontinued Medications Generic Name Dose Route Start Last Admin Trade Name Freq PRN Reason Stop Dose Admin Lidocaine HCl 10 ml 12/24/20 01:24 Lidocaine 1% 10 Ml Mdv INJECT 12/24/20 01:25 ONETIME ONE Lidocaine HCl 5 ml 12/24/20 01:48 12/24/20 02:06 Lidocaine 1% 5 Ml Sdv INJECT 12/24/20 01:49 5 ml ONETIME ONE Administration Octyl Cyanoacrylate 1 applic 12/24/20 02:03 12/24/20 02:06 Octyl 2-Cyanoacrylate 1 Applic Tube TOP 12/24/20 02:04 1 applic ONETIME ONE Administration Departure - Departure Time of Disposition: 06:32 Disposition: Home, Self-Care 01 Condition: Good Clinical Impression: Situational depression, Laceration of right wrist, Laceration of left upper arm - Discharge Information Instructions: Adjustment Disorder, Adult, Laceration Care, Adult, [id number] Referrals: PCP,None [Primary Care Provider] - Forms: ED Department Discharge Additional Instructions: Have sutures out in 7 to 10 days. That can be accomplished here. [facility] - Primary Care [address] [place] [address] [facility] [address] [place] [address] [facility] Address: [address] [place] [id number] Hours: walk in 9 AM M-F The following information is given to patients seen in the emergency department who are being discharged to home. This information is to outline your options for follow-up care. We provide all patients seen in our emergency department with a follow-up referral. The need for follow-up, as well as the timing and circumstances, are variable depending upon the specifics of your emergency department visit. If you don't have a primary care physician on staff, we will provide you with a referral. We always advise you to contact your personal physician following an emergency department visit to inform them of the circumstance of the visit and for follow-up with them and/or the need for any referrals to a consulting specialist. The emergency department will also refer you to a specialist when appropriate. This referral assures that you have the opportunity for follow-up care with a specialist. All of these measure are taken in an effort to provide you with optimal care, which includes your follow-up. Under all circumstances we always encourage you to contact your private physician who remains a resource for coordinating your care. When calling for follow-up care, please make the office aware that this follow-up is from your recent emergency room visit. If for any reason you are refused follow-up, please contact the [facility] Emergency Department at and asked to speak to the emergency department charge nurse. Sepsis Event Note (ED) - Focused Exam Vital Signs: Vital Signs Temp Pulse Resp BP Pulse Ox 12/24/20 06:24 96 17 100/60 96 12/24/20 03:29 78 16 134/76 97 12/24/20 01:36 36.6 C 107 H 26 H 141/93 H 96 - My Orders Last 24 Hours: My Active Orders 12/24/20 01:24 EKG Documentation Completion [RC] AM Sodium Chloride 0.9% [Saline Flush] 10 ml FLUSH ASDIRECTED PRN Sodium Chloride 0.9% [Saline Flush] 2.5 ml FLUSH ASDIRECTED PRN Saline Lock Insert [OM.PC] Stat - Assessment/Plan Last 24 Hours: My Active Orders 12/24/20 01:24 EKG Documentation Completion [RC] AM Sodium Chloride 0.9% [Saline Flush] 10 ml FLUSH ASDIRECTED PRN Sodium Chloride 0.9% [Saline Flush] 2.5 ml FLUSH ASDIRECTED PRN Saline Lock Insert [OM.PC] Stat
[2020-12-24 01:57] LABS: BLOOD UREA NITROGEN,BUN 11 mg/dL (7.0-18.0); CARBON DIOXIDE,CO2 21.7 mmol/L (21.0-32.0); CHLORIDE,CL 103 mmol/L (98-107); GLUCOSE RANDOM 99 mg/dL (74-106); POTASSIUM,K 3.4 mmol/L (3.5-5.1); SODIUM,NA 136 mmol/L (136-145)
[2020-12-24] MEDS ORDERED: Octyl 2-Cyanoacrylate 1 APPLIC TUBE TOP ONE (02:03)
[2020-12-24 06:25] VITALS: BP 100/60; PULSE 96
== END 2020-12-24 06:40 | disposition home or self-care (01) ==
LOC: MW.ED 01:21
DX: S61.511A Laceration without foreign body of right wrist, initial encounter (principal); S41.112A Laceration without foreign body of left upper arm, initial encounter; F43.21 Adjustment disorder with depressed mood; R00.0 Tachycardia, unspecified; J45.909 Unspecified asthma, uncomplicated; Z88.1 Allergy status to other antibiotic agents; Z91.018 Allergy to other foods; Z79.899 Other long term (current) drug therapy; X78.1XXA Intentional self-harm by knife, initial encounter
CPT/HCPCS: 12002; 36415; 80053; 80143; 80179; 80305; 80307; 84703; 85025; 93005; 99283; A9270